=== PATIENT | female | born 1975 | race Two or more races ===

== ENCOUNTER 2020-08-17 22:05 | Emergency (ER) | payer OTHER ==
[~2020-08-17] VITALS: Ht 157.5 cm; Wt 71.7 kg
[2020-08-18 01:51] LABS: Hepatitis B Surface Antibody Negative
[2020-08-18 03:19] LABS: Hepatitis B Surface Antigen Negative (Negative)
[2020-08-18 03:25] VITALS: BP 135/82
== END 2020-08-18 04:27 | disposition home or self-care (01) ==
LOC: ER 22:13
DX: S41.132A Puncture wound without foreign body of left upper arm, initial encounter (principal); X58.XXXA Exposure to other specified factors, initial encounter; Y93.89 Activity, other specified; Y92.89 Other specified places as the place of occurrence of the external cause; Y99.8 Other external cause status
CPT/HCPCS: 36415; 86703; 86706; 86803; 87340